=== PATIENT | female | born 1985 | race Caucasian/White ===

== ENCOUNTER 2016-10-12 13:50 | Emergency (ER) | payer OTHER ==
[~2016-10-12] VITALS: Ht 152.4 cm; Wt 53.3 kg
[~2016-10-12 13:50] MED LIST: CITALOPRAM HBR 40 MG; CLONAZEPAM0.5 MG PO; Dulcolax PR; Ecotrin PO; KLONOPIN0.5 M1 PO; LEXAPRO20 MG PO; METHADONE5 MG PO; Motrin PO; PROzac PO; SUBOXONE 8 M1 TABLET; SUBUTEX8 MG SL; Senokot,Sennagen PO; WELLBUTRIN100 MG PO; WELLBUTRIN75 MG PO
[2016-10-12 14:45] LABS: HEMATOCRIT 35.4 % (36.0-46.0); MCH 28.2 PG (29.0-34.0); MCHC 32.2 G/DL (30.0-36.0); MCV 87.6 FL (83-99); MEAN PLAT.VOLUME 9.8 uM^3 (9.5-12.4); PLATELET COUNT 200 K/uL (156-360); RBC DIS.WIDTH-CV 12.8 % (11.8-14.6); RBC DIS.WIDTH-SD 40.8 % (39-53); RED BLOOD COUNT 4.04 M/uL (3.80-5.20); WHITE BLOOD COUNT 5.7 K/uL (4.1-10.2)
[2016-10-12 14:55] LABS: CHLORIDE 105 mEq/L (99-109); POTASSIUM 3.8 mEq/L (3.7-5.4); SODIUM 138 mEq/L (136-147)
[2016-10-12 14:57] LABS: GLUCOSE 77 mg/dL (70-99)
[2016-10-12 14:58] LABS: ANION GAP 11 MEQ/L (2-14)
[2016-10-12 15:00] LABS: GFR ESTIMATE (CALCULATED) > 59 mL/min/
[2016-10-12 15:01] LABS: UREA NITROGEN (BUN) 16 mg/dL (9-23)
[2016-10-12 15:07] VITALS: BP 108/70
== END 2016-10-12 15:08 | disposition home or self-care (01) ==
LOC: EME 13:50 → EXP 13:50
PROVIDERS: Nurse Practitioner Family
DX: R59.9 Enlarged lymph nodes, unspecified (principal); F17.200 Nicotine dependence, unspecified, uncomplicated
CPT/HCPCS: 71020; 80048; 85027; 99281; 99284